=== PATIENT | male | born 1975 ===

== ENCOUNTER 2016-12-14 12:42 | Emergency (ER) | payer MEDICAID ==
[2016-12-14 12:46] VITALS: RESP 18; TEMP 97.7
[2016-12-14 13:06] VITALS: BMI 29.0
--- NOTE | 2016-12-14 14:00 | C.PDOC ---
History Of Present Illness 41 year old patient, with a past medical history of back problems and gastritis , presents to the ED complaining of right side neck and shoulder pain for the past 3 weeks. Patient states he has decreased ROM to the right due to pain. He took Motrin with some improvement of pain. Patient denies any known injury, fever, chills, numbness, weakness or tinging sensation in the upper extremities. Time Seen by Provider: 12/14/16 12:57 Chief Complaint (Nursing): Back Pain History Per: Patient History/Exam Limitations: no limitations Onset/Duration Of Symptoms: Other (3 weeks) Current Symptoms Are (Timing): Still Present Quality Of Discomfort: "Pain" Severity: Moderate Pain Scale Rating Of: 4 Previous Symptoms: Back Pain Associated Symptoms: None Exacerbating Factor(s): Turning (right) Recent travel outside of the [place]: No Past Medical History Reviewed: Historical Data, Nursing Documentation, Vital Signs Vital Signs: Last Vital Signs Temp 97.7 F 12/14/16 12:46 Pulse 75 12/14/16 14:29 Resp 18 12/14/16 14:29 BP 124/71 12/14/16 14:29 Pulse Ox 98 12/14/16 18:21 - Medical History PMH: Anxiety (NO MED AT PRESENT), Back Problems, Depression (NO MED AT PRESENT) , Gastritis Surgical History: Cholecystectomy - [facility] Procedures ENDOSCOP DEST OF OTH LESION OR TISU OF LRG INTESTN (03/20/15) VACCINATION NEC (03/06/15) Family History: States: Unknown Family Hx - Social History Hx Tobacco Use: Yes Hx Alcohol Use: No Hx Substance Use: Yes - Immunization History Hx Tetanus Toxoid Vaccination: No Hx Influenza Vaccination: No Hx Pneumococcal Vaccination: No Review Of Systems Except As Marked, All Systems Reviewed And Found Negative. Constitutional: Negative for: Fever, Chills Musculoskeletal: Positive for: Neck Pain (right), Shoulder Pain (right) Neurological: Negative for: Weakness, Numbness Physical Exam - Physical Exam Appears: Non-toxic, No Acute Distress, Other (uncomfortable) Skin: Warm, Dry Head: Atraumatic, Normacephalic Eye(s): bilateral: PERRL, EOMI Ear(s): Bilateral: Normal Nose: Normal Oral Mucosa: Moist Throat: Normal Neck: Decreased ROM (secondary to pain), No Midline Cervical Tenderness, No Paracervical Tenderness, Supple Chest: Symmetrical Cardiovascular: Rhythm Regular Respiratory: Normal Breath Sounds, No Rales, No Rhonchi, No Wheezing Back: Normal Inspection, No CVA Tenderness, No Vertebral Tenderness, No Decreased ROM, Muscle Spasm (palpable to right trapezius), Other (right trapezius tenderness) Extremity: Normal ROM Neurological/Psych: Oriented x3, Normal Speech, Normal Cognition, Normal Motor, Normal Sensation Gait: Steady ED Course And Treatment O2 Sat by Pulse Oximetry: 98 (RA) Pulse Ox Interpretation: Normal Progress Note: Plan: -Toradol, Valium Disposition Counseled Patient/Family Regarding: Diagnosis, Need For Followup - Disposition Referrals: Valeriy Barajas MD [Primary Care Provider] - Disposition: HOME/ ROUTINE Disposition Time: 14:00 Condition: IMPROVED Additional Instructions: Take one tab of Ibuprofen 800 mg by mouth with a muscle relaxant- no driving or operating machinery while on this medication. Follow up with oyur doctor as soon as possible. Return to ER for any worsening symptoms. Prescriptions: Methocarbamol [Robaxin-750] 750 mg PO TID #21 tablet Forms: General Discharge Instructions - Clinical Impression Clinical Impression: Muscle spasm of right shoulder - PA / PERINATOLOGY PHYSICIAN / Resident Statement MD/DO has reviewed & agrees with the documentation as recorded. - Scribe Statement The provider has reviewed the documentation as recorded by the Scribe Gracy Alvarez All medical record entries made by the Scribe were at my direction and personally dictated by me. I have reviewed the chart and agree that the record accurately reflects my personal performance of the history, physical exam, medical decision making, and the department course for this patient. I have also personally directed, reviewed, and agree with the discharge instructions and disposition.
[2016-12-14 14:29] VITALS: BP 124/71; PULSE 75; O2SAT 98
== END 2016-12-14 14:30 | disposition home or self-care (01) ==
LOC: SUPCPDRO 12:42 → C.ER 12:42
DX: M62.838 Other muscle spasm (principal)
CPT/HCPCS: 96372; 99283; J1885

== ENCOUNTER 2017-01-27 13:23 | Emergency (ER) | payer MEDICAID ==
[2017-01-27 13:24] VITALS: BMI 29.0
[2017-01-27 13:37] VITALS: PULSE 79; RESP 18; TEMP 97.8; O2SAT 98
--- NOTE | 2017-01-27 15:25 | C.PDOC ---
History Of Present Illness 41 year old patient presents to the ED complaining of left sided chest pain since 4 am. Patient was recently transferred from a motorized scooter to walking with a cane. Patient notes the pain is digitally reproducible. Patient denies numbness, weakness, nausea, vomiting, palpitations, or shortness of breath. Time Seen by Provider: 01/27/17 15:15 Chief Complaint (Nursing): Chest Pain History Per: Patient History/Exam Limitations: no limitations Onset/Duration Of Symptoms: Hrs (4 am today) Current Symptoms Are (Timing): Still Present Context: Other Severity: Mild Pain Scale Rating Of: 3 Quality: "Pain" Exacerbating Factors: None Alleviating Factors: None Recent travel outside of the [place]: No Past Medical History Reviewed: Historical Data, Nursing Documentation, Vital Signs Vital Signs: Last Vital Signs Temp 97.8 F 01/27/17 13:34 Pulse 79 01/27/17 13:34 Resp 18 01/27/17 13:34 BP Pulse Ox 98 01/27/17 19:36 - Medical History PMH: Anxiety (NO MED AT PRESENT), Back Problems, Depression (NO MED AT PRESENT) , Gastritis, HTN Surgical History: Cholecystectomy - [facility] Procedures ENDOSCOP DEST OF OTH LESION OR TISU OF LRG INTESTN (03/20/15) VACCINATION NEC (03/06/15) Family History: States: Unknown Family Hx - Social History Hx Tobacco Use: Yes Hx Alcohol Use: No Hx Substance Use: Yes - Immunization History Hx Tetanus Toxoid Vaccination: No Hx Influenza Vaccination: No Hx Pneumococcal Vaccination: No Review Of Systems Except As Marked, All Systems Reviewed And Found Negative. Cardiovascular: Positive for: Chest Pain (left sided). Negative for: Palpitations Respiratory: Negative for: Shortness of Breath Gastrointestinal: Negative for: Nausea, Vomiting Neurological: Negative for: Weakness, Numbness Physical Exam - Physical Exam Appears: Non-toxic, No Acute Distress Skin: Warm, Dry, No Rash Head: Atraumatic, Normacephalic Oral Mucosa: Moist Neck: Normal ROM, Supple Chest: Symmetrical, Tenderness (digitally and positionally reproducible on the left side) Cardiovascular: Rhythm Regular Respiratory: Normal Breath Sounds, No Rales, No Rhonchi, No Wheezing Gastrointestinal/Abdominal: Soft, No Tenderness Back: Normal Inspection, No CVA Tenderness Extremity: Normal ROM Neurological/Psych: Oriented x3, Normal Speech, Normal Cognition, Normal Motor, Normal Sensation Gait: Steady ED Course And Treatment ECG: Interpreted By Me, Viewed By Me ECG Rhythm: Sinus Rhythm ECG Interpretation: Normal Rate From EC (bpm) O2 Sat by Pulse Oximetry: 98 (room air) Pulse Ox Interpretation: Normal Medical Decision Making Medical Decision Making: digitally and positionlly reproducable discomfort @ L upper chest without rash and with normal EKG c/w costochondritis was wheelchair bound now just started using walking cane- may be contributing muscular strain. ice/nsaids/pepcid educated. Disposition Doctor Will See Patient In The: Office Counseled Patient/Family Regarding: Studies Performed, Diagnosis - Disposition Referrals: Valeriy Barajas MD [Medical Doctor] - Disposition: HOME/ ROUTINE Disposition Time: 15:25 Condition: GOOD Additional Instructions: ice packs to the L chest 1/2 hour per hour, nothing hot Motrin 400-600 mg every 6 hours as needed Pepcid 20 mg @ night to prevent stomach irritation from the Motrin no heavy lifting nor muscular effort with upper chest for 1 week (your new cane walking is probably suspect) This achy pain will last 2-3 weeks. Follow-up with your PMD as needed . Instructions: Costochondritis (ED) - Clinical Impression Clinical Impression: Chest discomfort - Scribe Statement The provider has reviewed the documentation as recorded by the Scribe Gracy Alvarez Provider Attestation: All medical record entries made by the Scribe were at my direction and personally dictated by me. I have reviewed the chart and agree that the record accurately reflects my personal performance of the history, physical exam, medical decision making, and the department course for this patient. I have also personally directed, reviewed, and agree with the discharge instructions and disposition.
--- NOTE | 2017-02-01 21:38 | CARD ---
APPROVED REPORT EKG Measurement Heart [id number] <Conclusion> Normal sinus rhythm Normal ECG
== END 2017-01-27 15:46 | disposition home or self-care (01) ==
LOC: C.ER 13:23
DX: R07.89 Other chest pain (principal)

== ENCOUNTER 2017-05-29 13:43 | Inpatient (IN) | payer MEDICAID ==
[2017-05-29 13:49] VITALS: BMI 25.8
[2017-05-29 14:24] LABS: BASO % 0.6 % (0.0-2.0); EOS # 0.1 K/uL (0.0-0.7); EOS % 1.5 % (0.0-4.0); HEMATOCRIT 46.5 % (35.0-51.0); LYMPH # 2.3 K/uL (1.0-4.3); LYMPH % 29.4 % (20.0-40.0); MEAN CORPUSCULAR HEMOGLOBIN 29.8 pg (27.0-31.0); MEAN CORPUSCULAR HGB CONC 34.2 g/dL (33.0-37.0); MEAN PLATELET VOLUME 6.8 fL (7.2-11.7); MONO # 0.4 K/uL (0.0-0.8); MONO % 5.7 % (0.0-10.0); NRBC % 0.1 % (0.0-2.0); RED CELL DISTRIBUTION WIDTH 13.4 % (11.5-14.5); WHITE BLOOD COUNT 7.7 K/uL (4.8-10.8)
[2017-05-29 14:30] LABS: RBC URINE 4 /hpf (0-3); URINE BILIRUBIN NEGATIVE (NEGATIVE); URINE BLOOD 1+ (NEGATIVE); URINE COLOR Yellow (YELLOW); URINE GLUCOSE (UA) NORMAL (Normal); URINE KETONE NEGATIVE (NEGATIVE); URINE LEUKOCYTE ESTERASE NEG Leu/uL (Negative); URINE PROTEIN NEGATIVE (NEGATIVE); URINE UROBILINOGEN NORMAL mg/dL (0.2-1.0); WBC URINE 1 /hpf (0-5)
[2017-05-29 14:40] LABS: CHLORIDE 103 mmol/L (98-107)
[2017-05-29 14:41] LABS: POTASSIUM 3.9 mmol/L (3.6-5.2); SODIUM 141 mmol/L (132-148)
[2017-05-29 14:43] LABS: ALB/GLOB RATIO 1.3 (1.0-2.1); ALKALINE PHOSPHATASE 85 U/L (38-126); ALT/SGPT 33 U/L (21-72); AST/SGOT 22 U/L (17-59); BILIRUBIN,TOTAL 1.8 mg/dL (0.2-1.3); BLOOD UREA NITROGEN 9 mg/dL (9-20); CALCIUM 9.5 mg/dl (8.6-10.4); CARBON DIOXIDE 22 mmol/L (22-30); GFR AFRICAN-AMERICAN > 60; GLUCOSE,RANDOM 90 mg/dL (75-110); TOTAL PROTEIN 7.5 g/dL (6.3-8.3)
[2017-05-29 14:44] LABS: ALCOHOL SERUM < 10 mg/dl (0-10)
--- NOTE | 2017-05-29 15:28 | C.PDOC ---
History Of Present Illness 41 y/o male with a Hx of bipolar disorder and depression, referred from [facility] for mental illness. Patient notes using a extension cord to attempt to hang himself in his bedroom last night but when he leaned forward with the cord around his neck, the cord gave way with him falling forward with no significant hanging effect and ? transient loss of consciousness. Immediately afterward he walked into the group are of the living area and had discussions with fellow residents without mention of the incident. No prior suicide attempts. Denies homicidal ideation. Time Seen by Provider: 05/29/17 13:48 Chief Complaint (Nursing): Psychiatric Evaluation History Per: Patient History/Exam Limitations: no limitations Onset/Duration Of Symptoms: Hrs Current Symptoms Are (Timing): Still Present Suicide/Self Injury Attempted (Context): Other (Hanging) Modifying Factor(s): None Severity: Moderate Associated Symptoms: Suicidal Thoughts, Suicidal Plan Recent travel outside of the [place]: No Additional History Per: Patient Past Medical History Reviewed: Historical Data, Nursing Documentation, Vital Signs Vital Signs: Last Vital Signs Temp 98.2 F 05/29/17 16:12 Pulse 77 05/29/17 16:12 Resp 18 05/29/17 18:08 BP 133/86 05/29/17 16:12 Pulse Ox 99 05/29/17 16:25 - Medical History PMH: Anxiety, Back Problems, Bipolar Disorder, Depression, Diabetes, Gastritis, HTN Denies: Chronic Kidney Disease Surgical History: Cholecystectomy - [facility] Procedures ENDOSCOP DEST OF OTH LESION OR TISU OF LRG INTESTN (03/20/15) VACCINATION NEC (03/06/15) Family History: States: Unknown Family Hx - Social History Hx Tobacco Use: Yes Hx Alcohol Use: No Hx Substance Use: Yes - Immunization History Hx Tetanus Toxoid Vaccination: No Hx Influenza Vaccination: No Hx Pneumococcal Vaccination: No Review Of Systems Except As Marked, All Systems Reviewed And Found Negative. Neurological: Positive for: Other (LOC) Psych: Positive for: Suicidal ideation. Negative for: Other (Homicidal ideation ) Physical Exam - Physical Exam Appears: Non-toxic, No Acute Distress Skin: Warm, Dry Head: Atraumatic, Normacephalic Eye(s): bilateral: Normal Inspection, PERRL, EOMI Neck: No Midline Cervical Tenderness, Other (Neckline tenderness. NO neckline swelling. No trachea tenderness.) Chest: Symmetrical Cardiovascular: Rhythm Regular Respiratory: Normal Breath Sounds, No Accessory Muscle Use, No Stridor, No Wheezing Neurological/Psych: Oriented x3 ED Course And Treatment - Laboratory Results Result Diagrams: 05/29/17 14:21 05/29/17 14:21 Lab Interpretation: Abnormal (+ THC) O2 Sat by Pulse Oximetry: 99 (RA) Pulse Ox Interpretation: Normal Reevaluation Time: 15:27 Reassessment Condition: Improved Medical Decision Making Medical Decision Making: bipolar, ? spinal stenosis and wheelchair bound but no supporting radiographical evidence Able to peform ADL's mild sore throat, benign. Plans: Blood labs, UA, though pt relates story of attempted hanging himself last night, his eval of external neck is negative. Notwithstanding pt's can suffer tracheal damage which may not manifest for a few days after an injury, usually presenting as worstening sob, sore throat, stridor which can be easily mistaken for anxiety in a psych pt and inappropriately treated with anxiolytics instead of the appropriate anti- inflammatories and stroids to reduce swelling/inflammation of upper airways due to prior tracheal insult. After exam and eval, this pt has LOW suspicion of tracheal damage at this time. Pt's story more c/w hanging "gesture" and not successful physicial hanging from the neck. Defer further imaging/CT's at this time. Observe this pt for s/s of upper airway compromise- ie wheezing/stridor/sob and consult Medicine/ENT PRN Caution with sedating for anxiety as this may further compromise respiratory status if airway already even mildly compromised. Disposition Doctor Will See Patient In The: Hospital Counseled Patient/Family Regarding: Studies Performed, Diagnosis - Disposition Disposition: HOSPITALIZED Disposition Time: 15:28 Condition: GOOD - Clinical Impression Clinical Impression: Bipolar 1 disorder, Intentional self-harm by hanging - Scribe Statement The provider has reviewed the documentation as recorded by the Ashibkortney fitzpatrick All medical record entries made by the Ashibkortney were at my direction and personally dictated by me. I have reviewed the chart and agree that the record accurately reflects my personal performance of the history, physical exam, medical decision making, and the department course for this patient. I have also personally directed, reviewed, and agree with the discharge instructions and disposition.
[2017-05-29 16:15] VITALS: O2SAT 99
--- NOTE | 2017-05-29 21:25 | PCM.BM ---
<Nikolay Callejas - Last Filed: 05/29/17 21:22> Treatment Plan Problems - Problems identified on initial assessmt Depression Date Initiated: 05/29/17 Time Initiated: 17:10 Assessment reference: NA Status: Active Suicidal Ideation Date Initiated: 05/29/17 Time Initiated: 17:10 Assessment reference: NA Status: Monitor Treatment assets and liabiliti Patient Assests: adapts well, negotiates basic needs Patient Liabilities: poor support system, relationship conflicts, substance abuse (Marijuana), medical problems (HTN, Diabetes type 1, Lower back pain, ) - Milieu Protocol Maintain good personal hygiene: daily Encourage regular showers, daily Remind patient to perform daily oral care, every shift Assist patient to perform ADL's Maintain personal safety: every shift Educate patient to report safety concerns to staff, every shift Monitor environment for contraband/sharps Medication safety: Monitor for expected outcome, potential side effects: every shift, Assess barriers to learning: every shift, Assess readiness for medication education: every shift <Juana Sarah - Last Filed: 06/01/17 10:56> Family Contact Family involvement: Family/SO is involved Family contact: Patient agrees to contact Family contact name: Anh Hammer-mother Family contacted how many times per week?: 1 - Outside Agency Agency 1 Care involvment: Following patient during stay, Information-sharing Agency contact name: [facility] Agency contact number: - Goals for Treatment Patient goals for treatment: "I need the right medication." Discharge/Continuing Care - Education Needs Education Needs: Patient Medication, Patient Coping Skills, Patient Placement options, Patient Community resources - Discharge Discharge Criteria: Tolerates medication w/o severe side effects, Free of Suicidal thoughts, Reduction of target symptoms Discharge to:: Correction - Treatment Team Participation Discussed with Family/SO: Yes Was Patient/Family/SO present at Treatment Team Meeting: Yes <Blair Grier - Last Filed: 06/01/17 14:19> - Diagnosis (1) Bipolar 1 disorder Status: Acute Interventions: 06/01/17 14:14 Assess/adjust medications daily and/or as needed See patient on an individual basis 7 times per week to assess status of hallucinations or other psychiatric symptoms Discuss risks, benefits, side effects and alternatives of medications. (2) PTSD (post-traumatic stress disorder) Status: Acute Interventions: 06/01/17 14:19 Assess/adjust medications daily and/or as needed See patient on an individual basis 7 times per week to assess status of psychiatric symptoms Discuss risks, benefits, side effects and alternatives of medications.
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
[2017-05-30] MEDS ORDERED: Oxycodone/Acetaminophen 5/325 mg Tab PO ONE (22:07)
[2017-05-31] MEDS ORDERED: Pneumococcal 23-Valent Vaccine IM ONE (10:00)
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
[2017-05-31] MEDS: oxyCODONE 10 mg Immediate Release Tab PO PRN ×2 (15:37→21:42)
--- NOTE | 2017-05-31 17:00 | PCM.PYCHPN ---
Psychiatric Progress Note - Psychiatric Progress Note Patient seen today, length of contact: 15 minutes Patient Chief Complaint: "I'm feeling better" Medical Problems: Back pain, shoulder pain DSM 5 Symptoms Update: bipolar d/o, mre MDD PTSD nicotine use d/o Medication Change: No Medical Record Reviewed: Yes Mental Status Examination - Cognitive Function Orientation: Person, Place, Situation, Time Memory: Intact Attention: WNL Concentration: WNL Association: WNL Fund of Knowledge: WNL - Mood Mood: Other (I'm feeling better) - Affect Affect: Constricted - Speech Speech: Appropriate - Formal Thought Process Formal Thought Process: No Impairment Psychotic Thoughts and Behaviors: denied Additional comments: I/J fair/fair - Suicidal Ideation Suicidal Ideation: No - Homicidal Ideation Homicidal Ideation: No Goal/Treatment Plan - Goal/Treatment Plan Need for Continued Stay: Severe depression anxiety, Discharge may exacerbated symptoms Progress Toward Problem(s) and Goals/Treatment Plan: Continue Seroquel 100 mg po HS for mood stabilization Zoloft 150 mg po daily for depression Trazodone 50 hs for insomnia prn Neurontin for pain Nicotine SC patch 14 mg Q24 hour Klonopin for anxiety Therapy in milieu Individual and group therapy. Medication benefits and s/e discussed with the pt and alternative meds. Klonopin addicting property, including decrease in cognition and worsening of PTSD was discussed with the pt. Pt verbalized understanding and wants to continue Klonopin and other meds. Estimated Date of D/C: 06/03/17 - Smoking Cessation Smoking Cessation Initiated: Yes
[2017-06-01] MEDS: oxyCODONE 10 mg Immediate Release Tab PO PRN ×2 (09:19→21:22)
[2017-06-01] MEDS ORDERED: Influenza Vaccine 60 mcg/0.5 mL SYR (4YR UP) IM ONE (10:00)
--- NOTE | 2017-06-01 14:22 | PCM.PYCHPN ---
Psychiatric Progress Note - Psychiatric Progress Note Patient seen today, length of contact: 15 minutes Patient Chief Complaint: I'm feeling much better Problems Identified/Issues Discussed: Patient seen. Chart reviewed. Case discussed with the staff. Issues related to illness and treatment were discussed with the patient. Reported compliant with treatment with no adverse affects. Tolerating treatment very well. Reported feeling better with the treatment, better sleep. No new symptoms. At the time of evaluation, patient was awake alert oriented 3, had no delusions , no auditory visual hallucinations, no suicidal ideations or homicidal ideations. Medical Problems: None reported Diagnostic Results: Reviewed DSM 5 Symptoms Update: Improving with treatment Medication Change: No Medical Record Reviewed: Yes Mental Status Examination - Cognitive Function Orientation: Person, Place, Situation, Time Memory: Intact Attention: WNL Concentration: WNL Association: WNL Fund of Knowledge: [facility] Decription of patient's judgement and insights: Fair - Mood Mood: Depressed (Much less than before) - Affect Affect: Other (Appropriate) - Speech Speech: Appropriate - Formal Thought Process Formal Thought Process: No Impairment - Suicidal Ideation Suicidal Ideation: No - Homicidal Ideation Homicidal Ideation: No Goal/Treatment Plan - Goal/Treatment Plan Need for Continued Stay: Remain at risks for inpatient hospitalization, Discharge may exacerbated symptoms, Severe functional impairment Progress Toward Problem(s) and Goals/Treatment Plan: Improving with treatment Estimated Date of D/C: 06/03/17 - Smoking Cessation Smoking Cessation Initiated: Yes
[2017-06-02] MEDS: oxyCODONE 10 mg Immediate Release Tab PO PRN ×2 (09:10→21:08)
--- NOTE | 2017-06-02 18:06 | PCM.PYCHPN ---
Psychiatric Progress Note - Psychiatric Progress Note Patient seen today, length of contact: 15 minutes Patient Chief Complaint: I'm feeling much better Problems Identified/Issues Discussed: Patient seen. Chart reviewed. Case discussed with the staff. Issues related to illness and treatment were discussed with the patient. Reported compliant with treatment with no adverse affects. Tolerating treatment very well. Reported feeling much better with the treatment, better sleep. No new symptoms. At the time of evaluation, patient was awake alert oriented 3, had no delusions , no auditory visual hallucinations, no suicidal ideations or homicidal ideations. Medical Problems: None reported Diagnostic Results: Reviewed DSM 5 Symptoms Update: Improving with treatment Medication Change: No Medical Record Reviewed: Yes Mental Status Examination - Cognitive Function Orientation: Person, Place, Situation, Time Memory: Intact Attention: WNL Concentration: WNL Association: WN Fund of Knowledge: [facility] Decription of patient's judgement and insights: Fair - Mood Mood: Depressed (Much less than before) - Affect Affect: Other (Appropriate) - Speech Speech: Appropriate - Formal Thought Process Formal Thought Process: No Impairment Psychotic Thoughts and Behaviors: None - Suicidal Ideation Suicidal Ideation: No - Homicidal Ideation Homicidal Ideation: No Goal/Treatment Plan - Goal/Treatment Plan Need for Continued Stay: Remain at risks for inpatient hospitalization, Discharge may exacerbated symptoms, Severe functional impairment Progress Toward Problem(s) and Goals/Treatment Plan: Improving with treatment Estimated Date of D/C: 06/03/17 - Smoking Cessation Smoking Cessation Initiated: Yes
[2017-06-03 07:22] VITALS: RESP 20
[2017-06-03] MEDS: oxyCODONE 10 mg Immediate Release Tab PO PRN ×2 (09:38→21:32)
[2017-06-04 07:26] VITALS: BP 147/99; PULSE 109; TEMP 97.3
[2017-06-04] MEDS: oxyCODONE 10 mg Immediate Release Tab PO PRN (09:03)
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
== END 2017-06-04 12:35 | disposition home or self-care (01) | DRG 430 ==
LOC: C.ER 13:43 → C.5E 15:26
PROC: GZHZZZZ Group Psychotherapy (ICD-10-PCS; principal; 2017-05-29)
DX: F31.9 Bipolar disorder, unspecified (principal); E11.9 Type 2 diabetes mellitus without complications; I10 Essential (primary) hypertension; F43.10 Post-traumatic stress disorder, unspecified; T14.91XA Suicide attempt, initial encounter; Z90.49 Acquired absence of other specified parts of digestive tract; Z99.3 Dependence on wheelchair; M48.00 Spinal stenosis, site unspecified; X83.8XXA Intentional self-harm by other specified means, initial encounter; F17.210 Nicotine dependence, cigarettes, uncomplicated; Z91.410 Personal history of adult physical and sexual abuse; G89.29 Other chronic pain; M54.9 Dorsalgia, unspecified; F41.8 Other specified anxiety disorders

== ENCOUNTER 2018-11-22 09:10 | Outpatient (CLI) | payer MEDICARE, MEDICAID | END 2018-11-22 09:11 | disposition home or self-care (01) | LOC: C.RADH 09:10 ==